=== PATIENT | male | born 1970 | race Two or more races ===

== ENCOUNTER 2025-05-07 13:43 | Emergency (ER) | payer BC, SELFPAY ==
--- NOTE | ~2025-05-07 | CT_ITS ---
CLINICAL HISTORY: left lower lobe infiltrate CT angiography chest with contrast. 3D Postprocessing. Comparison: None provided Findings: Motion and streak artifact limit evaluation. Mild cardiomegaly. Unremarkable thoracic aorta and great vessels. No aneurysm. No acute pulmonary embolus. Distal esophageal mural thickening, nonspecific. Mildly prominent AP window node, subcentimeter, nonspecific. Gynecomastia. Calcified granulomas in the lungs. Ill-defined patchy/nodular consolidations in the left lower lobe. Tiny bilateral pulmonary nodules measuring no more than 5 mm, more isolated for example right upper lobe series 5, image 55. Per Fleischner criteria: Low-risk patients: No routine follow-up required. High-risk patients: Optional CT at 12 months. No significant pleural effusion or pneumothorax. Gastric lap band noted, below the diaphragm around the proximal stomach. Cholelithiasis. Subtle hepatic nodular contours, question cirrhosis, should be correlated clinically. Osteopenia with diffuse multilevel spondylosis. Intra fissural lymph node on the left measuring 8 mm series 5, image 65. IMPRESSION: 1. No evidence of PE. 2. Ill-defined patchy/nodular consolidations in the left lower lobe. Suspect developing pneumonia. This document has been electronically signed by: Davey Khan MD on 05/07/2025 18:43:21
--- NOTE | ~2025-05-07 | XR_ITS ---
EXAMINATION: XR CHEST CLINICAL INFORMATION: chest pain, SOB COMPARISON: None available. TECHNIQUE: 2 views of the chest were obtained. FINDINGS: The cardiac, hilar, and mediastinal contours are normal. The lungs are well inspired. There is an extremely subtle opacity in the left base, only well seen on the PA projection. Lungs otherwise clear. There is no pneumothorax or pleural effusion. There is no focal osseous or soft tissue abnormality. XR/XR chest 2V IMPRESSION: Subtle opacity in the left lower lung, could potentially represent pneumonia in the appropriate clinical setting. Electronically signed by: Yogesh Zambrano MD 05/07/2025 02:27 PM EDT
--- NOTE | 2025-05-07 13:59 | ED.GENADULT ---
HPI - General Adult General Chief complaint: Weakness Stated complaint: sob pneumonia chest tightness Time Seen by Provider: 05/07/25 17:07 Source: patient, RN notes reviewed and old records reviewed Mode of arrival: ambulatory Limitations: no limitations History of Present Illness ED Provider: Jazmine HPI narrative: 54-year-old male presents for evaluation of shortness of breath and chest tightness. Patient reports a history of diabetes, hypertension, hyperlipidemia and seasonal asthma He reports feeling increasing shortness of breath, especially with exertion over the last 2 weeks starting on 04/26/2025. He reports that he presented to [facility] but left without being seen. He did have some labs prior to leaving He went to urgent care the following day and had an x-ray that showed left basilar pneumonia and he was prescribed levofloxacin for 5 days He subsequently received a course of prednisone on 05/02/2025 which she also completed He presents today for worsening shortness of breath Related Data Previous Rx's ?Medication ?Instructions ?Recorded amoxicillin 875 mg-potassium 1 tab PO Q12H #20 tabs 05/07/25 clavulanate 125 mg tablet doxycycline hyclate 100 mg capsule 100 mg PO BID #20 caps 05/07/25 Allergies Allergy/AdvReac Type Severity Reaction Status Date / Time ibuprofen Allergy Unknown Verified 05/07/25 14:01 Penicillins (PCN) Allergy Unknown Verified 05/07/25 14:01 [facility] Social History Social History Smoked in Last 30 Days: No Use of substances other than those prescribed or required for medical reasons: No Advance Directives: Yes Advance Directives on File: Yes Advance Directives Date on File: 05/07/25 Do you have a plan to hurt others: No Plan Physical Exam ED Vital Signs: Vital Signs - 24 hr 05/07/25 14:00 05/07/25 17:25 05/07/25 19:47 Temperature 96.2 F L 98.1 F Pulse Rate 89 70 60 Respiratory Rate 16 20 16 Blood Pressure 109/71 132/82 136/82 Pulse Oximetry 97 97 95 Oxygen Delivery Method Room Air Room Air Room Air BMI result Body Mass Index 34.4 Course Course Course Narrative: This is an RME: Additional HPI, ROS, PE not included below will be deferred to primary provider. RME assessment and note performed by: Jen Lin PA-C This is a [id number], with a hx of HTN, HLD, DM2, seasonal asthma, who presents to the ER, accompanied with complaints of chest pain, shortness of breath and fatigue. Patient states that he was seen at [facility] urgent care where he was diagnosed with pneumonia on April 27. He was then sent to [facility] where he only had blood work done but was never seen by a provider. He was placed on Levaquin, and prednisone, he has been compliant with these medications however symptoms have not improved. He states that he is experiencing chest tightness and shortness for breath. Former smoker quit years ago, social drinker, no other drug use. Lungs clear, speaking in full sentences appears to be under no acute distress Plan: Labs, EKG, CXR, further ER eval needed Reevaluation(s) Reevaluation #1: I Kasie Contreras PA-C have accepted care of the patient at signed out pending admission for pneumonia. In speaking with the hospitalist, , he feels the patient can potentially go home. He did have discussion with the patient, the patient would prefer to go home. The patient is afebrile, stable vitals, is not hypoxic. Again the patient will prefer to be managed as an outpatient. He has been instructed to follow up with his primary care within a week, we are going to treat with Augmentin and doxycycline. Time: 19:51 Medications Administered Generic Name Dose Route Start Last Admin Trade Name Freq PRN Reason Stop Dose Admin Azithromycin 500 mg/ Sodium 250 mls @ 125 mls/hr 05/07/25 19:04 05/07/25 19:45 Chloride IV 05/07/25 21:03 125 mls/hr ONCE ONE Administration Sodium Chloride 1,000 mls @ 999 mls/hr 05/07/25 19:15 05/07/25 19:14 Ns IV 05/07/25 20:15 999 mls/hr .Q1H1M RAMIRO Administration Discontinued Medications Generic Name Dose Route Start Last Admin Trade Name Freq PRN Reason Stop Dose Admin Ceftriaxone Sodium 1 gm 05/07/25 19:04 05/07/25 19:24 Ceftriaxone Sodium 1 Gm Vial IVPUSH 05/07/25 19:05 1 gm ONCE ONE Administration Iohexol 100 ml 05/07/25 17:53 05/07/25 17:53 Iohexol 350 Mg/Ml 100 Ml Infus..Btl IV 05/07/25 17:54 75 ml ONCE ONE Administration Medical Decision Making Medical Decision Making [facility] Narrative: 54-year-old male with past medical history as above presents for evaluation of continued chest tightness and shortness of breath. His x-ray shows vague left lower lobe pneumonia which is consistent with his x-ray from 04/27/2025. He completed a course of Levaquin and prednisone with no improvement, a CTA was ordered which shows developing left lower lobe infiltrate. Given the patient failed outpatient therapy we will treat with ceftriaxone, azithromycin admit to the hospital for IV antibiotics for treatment of community-acquired pneumonia in the setting of failed outpatient therapy. The patient does not meet sepsis criteria Differential Diagnosis Differential Diagnoses: The differential diagnosis associated with the presentation includes Community-acquired pneumonia Bronchitis Sepsis Upper respiratory infection Admission/Observation Consideration of admission/observation: Escalation of care including admission/observation considered Consult Healthcare Provider Management of the patient was discussed with: Hospitalist Lab Data [facility] Lab Attestation statement: I reviewed the patient's lab results. No leukocytosis or anemia. Normal platelet count. No significant electrolyte abnormalities warranting intervention. 05/07/25 14:50 05/07/25 14:50 Labs: Lab Results 05/07/25 05/07/25 05/07/25 Range/Units 14:50 18:29 19:16 WBC 6.5 (4.8-10.8) X10*3/uL RBC 4.86 (4.60-5.80) X10*6/uL Hgb 14.6 (14.0-18.0) g/dl Hct 42.3 (42.0-52.0) % MCV 87.0 (80.0-98.0) fL MCH 30.0 (27.0-33.0) pg MCHC 34.5 (31.0-36.0) g/dl RDW 13.0 (11.0-16.0) % Plt Count 210 (160-400) X10*3/uL MPV 9.2 L (9.4-12.4) fL Immature Gran % (Auto) 0.9 H (0.0-0.4) % Neut % (Auto) 67.3 (45-73) % Lymph % (Auto) 23.8 (20-40) % [place] % (Auto) 5.7 (2-11) % Eos % (Auto) 1.5 (0-4) % Baso % (Auto) 0.8 (0-2) % Lymph # (Auto) 1.6 (1.2-4.9) X10*3/uL [place] # (Auto) 0.4 (0.1-1.2) X10*3/uL Eos # (Auto) 0.1 (0.0-0.4) X10*3/uL Baso # (Auto) 0.1 (0.0-0.2) X10*3/uL Abs Immat Gran (auto) 0.06 H (0.00-0.03) X10*3/uL Absolute Neuts (auto) 4.4 (2.0-8.3) x10*3/uL Absolute Nucleated RBC 0.000 (0.0-0.012) X10*3/uL Nucleated RBC % (auto) 0.0 (0.0-0.2) /100WBC Sodium 142 (135-145) mmol/L Potassium 4.3 (3.3-5.1) mmol/L Chloride 104 (96-108) mmol/L Carbon Dioxide 33 H (22-29) mmol/L Anion Gap 9 L (12-20) BUN 20 H (9-16) mg/dL Creatinine 1.31 (0.5-1.4) mg/dL Estim Creat Clear Calc 85.3 Estimated GFR 57 Random Glucose 103 (60-115) mg/dL Lactic Acid 1.3 (0.5-2.0) mmol/L Calcium 9.3 (8.4-10.2) mg/dL Magnesium 2.4 (1.6-2.6) mg/dL Total Bilirubin 0.3 (0.0-1.0) mg/dL Direct Bilirubin 0.2 (0.0-0.5) mg/dL AST 51 H (5-37) U/L ALT 53 H (0-40) U/L Alkaline Phosphatase 59 (39-117) U/L Troponin I High Sens < 2.7 (<3.5-35.0) ng/L Total Protein 7.4 (6.5-8.0) g/dL Albumin 3.8 (3.5-5.0) g/dL Urine Color Yellow Urine Appearance Clear Urine pH 6.0 (5.0-9.0) Ur Specific [place] >= 1.030 H (1.005-1.025) Urine Protein Negative (Neg-Trace) mg/dL Urine Glucose (UA) Negative (Negative) mg/dL Urine Ketones Negative (Negative) mg/dL Urine Blood Small (1+) H (Negative) Urine Nitrite Negative (Negative) Ur Leukocyte Esterase Negative (Negative) Urine RBC 3-5 H (0-2) /HPF Urine WBC 0-5 (0-5) /HPF Ur Squamous Epith Cells 0-2 (0-2) /HPF Urine Bacteria None Seen (None Seen) Hyaline Casts 0-2 (0-2) /LPF Influenza Type A (PCR) NEGATIVE (Negative) Influenza Type B (PCR) NEGATIVE (Negative) RSV RNA Qual (PCR) NEGATIVE (Negative) SARS-CoV-2 RNA (RT-PCR) NEGATIVE (Negative) Discharge Plan Discharge Clinical Impression: Community acquired pneumonia Patient Disposition: Home, Self-Care Instructions: Community Acquired Pneumonia (ED) Additional Instructions: You were found to have pneumonia. See home care instructions. Take the doxycycline as directed, take the Augmentin as directed. Antibiotics have the propensity to cause diarrhea, take a concurrent probiotic. Be sure to complete the course of each antibiotic. Follow up with your primary care provider within a week. Prescriptions: New amoxicillin-pot clavulanate 875-125 mg tablet 1 tab PO Q12H Qty: 20 0RF doxycycline hyclate 100 mg capsule 100 mg PO BID Qty: 20 0RF Print Language: Azerbaijani
[2025-05-07 14:00] VITALS: BP 109/71; PULSE 89; RESP 16; TEMP 35.7; O2SAT 97; BMI 34.4
--- NOTE | 2025-05-07 14:06 | ECG_ITS ---
Test Reason : CP/SOB Blood Pressure : */* mmHG Vent. Rate : 74 BPM Atrial Rate : 74 BPM P-R Int : 156 ms QRS Dur : 80 ms QT Int : 404 ms P-R-T Axes : 32 -6 3 degrees QTcB Int : 448 ms Normal sinus rhythm Minimal voltage criteria for LVH, may be normal variant ( R in aVL ) Borderline ECG No previous ECGs available Referred By: Jen Lin Electronically Signed By: Felton Mathews
[2025-05-07 14:54] LABS: MANUAL DIFF FLAG NO
[2025-05-07 14:57] LABS: Hematocrit 42.3 % (42.0-52.0); Hemoglobin 14.6 g/dl (14.0-18.0); Imm Gran Abs Auto 0.06 X10*3/uL (0.00-0.03); Imm Gran Pct Auto 0.9 % (0.0-0.4); Lymphocytes Absolute Auto 1.6 X10*3/uL (1.2-4.9); Mean Corpuscular HGB Conc 34.5 g/dl (31.0-36.0); Mean Corpuscular Hemoglobin 30.0 pg (27.0-33.0); Mean Corpuscular Volume 87.0 fL (80.0-98.0); NRBC Abs Auto 0.000 X10*3/uL (0.0-0.012); NRBC Pct Auto 0.0 /100WBC (0.0-0.2); Platelet Count 210 X10*3/uL (160-400); Red Blood Count 4.86 X10*6/uL (4.60-5.80); White Blood Count 6.5 X10*3/uL (4.8-10.8)
[2025-05-07 15:18] LABS: Troponin-I High Sensitivity < 2.7 ng/L (<3.5-35.0)
[2025-05-07 15:23] LABS: Alanine Aminotransferase 53 U/L (0-40); Albumin Level 3.8 g/dL (3.5-5.0); Alkaline Phosphatase 59 U/L (39-117); Anion Gap 9 (12-20); Aspartate Amino Transferase 51 U/L (5-37); Blood Urea Nitrogen 20 mg/dL (9-16); Calcium 9.3 mg/dL (8.4-10.2); Carbon Dioxide 33 mmol/L (22-29); Chloride 104 mmol/L (96-108); Creatinine Clr Calc Pharmacy 85.3; Estimated Glomerular Filt Rate 57; Magnesium 2.4 mg/dL (1.6-2.6); Potassium 4.3 mmol/L (3.3-5.1); Sodium 142 mmol/L (135-145); Total Protein 7.4 g/dL (6.5-8.0)
[2025-05-07 15:36] LABS: Resp Syncy Virus RNA Qual PCR NEGATIVE (Negative); SARS COV2 PCR INHOUSE NEGATIVE (Negative)
[2025-05-07 17:25] VITALS: BP 132/82; PULSE 70; RESP 20; TEMP 36.7; O2SAT 97
[2025-05-07] MEDS: iohexoL 350 MG/ML 100 ML INFUS..BTL IV (17:53)
[2025-05-07 18:37] LABS: Appearance Urine Clear; Glucose Urine UA Negative (Negative); PH 6.0 (5.0-9.0); Specific Gravity - Urine >= 1.030 (1.005-1.025); UMIC TRIGGER UACC YES
--- NOTE | 2025-05-07 19:46 | PC.NURSE ---
PT medicated per Mar, beverage and snack given to PT. Hospitalist at bedside call chaivs within reach.
[2025-05-07 19:47] VITALS: BP 136/82; PULSE 60; RESP 16; O2SAT 95
[2025-05-07 20:15] VITALS: BP 136/82; PULSE 60; RESP 16; TEMP 36.6; O2SAT 95
== END 2025-05-07 20:16 | disposition home or self-care (01) ==
PROVIDERS: Physician Assistant; Physician Assistant Medical; Emergency Provider Emergency Medicine Emergency Medical Services; PCP Internal Medicine
DX: J18.9 Pneumonia, unspecified organism (principal); E11.9 Type 2 diabetes mellitus without complications; I10 Essential (primary) hypertension; E78.5 Hyperlipidemia, unspecified; J45.909 Unspecified asthma, uncomplicated
CPT/HCPCS: 36415; 71046; 71275; 80048; 80076; 81001; 83605; 83735; 84484; 85025; 87040; 87637; 93005; 96361; 96374; 96375; 99285; J0456; J0696; Q9967

== ENCOUNTER → 2025-05-07 14:04 | Outpatient (BNV) | payer SELFPAY | PROVIDERS: Visit Provider Radiology Diagnostic Radiology | DX: R91.8 Other nonspecific abnormal finding of lung field (principal); R06.02 Shortness of breath | CPT/HCPCS: 71046; 71275 ==

== ENCOUNTER → 2025-05-07 14:06 | Outpatient (BNV) | payer BC, SELFPAY | PROVIDERS: Emergency Provider Emergency Medicine Emergency Medical Services; PCP Internal Medicine; Visit Provider Internal Medicine Cardiovascular Disease | DX: R06.02 Shortness of breath (principal); R07.89 Other chest pain | CPT/HCPCS: 93010 ==